=== PATIENT | male | born 1950 | race Asian ===

== ENCOUNTER 2017-09-05 05:30 | Inpatient (IN) | payer OTHER, MEDICARE ==
[2017-09-04 15:23] LABS: BASOPHILS % (AUTO) 0.7 % (0.0-5.0); EOSINOPHILS % (AUTO) 4.7 % (0.0-8.0); HEMATOCRIT 40.9 % (42-54); LYMPHOCYTES % (AUTO) 20.3 % (21.0-51.0); MEAN CORPUSCULAR HGB CONC 33.4 g/dL (32.0-36.0); MEAN CORPUSCULAR VOLUME 86.9 fL (79-99); MONOCYTES % (AUTO) 5.8 % (3.0-13.0); NEUTROPHILS % (AUTO) 68.5 % (40.0-77.0); PLATELET COUNT (AUTO) 217 K/uL (130-400); RED CELL DISTRIBUTION WIDTH 14.1 % (11.0-15.5); WHITE BLOOD COUNT (AUTO) 8.2 K/uL (4.8-10.8)
[2017-09-04 15:32] VITALS: BP 114/64
[2017-09-04 15:34] LABS: INR 0.95 (0.85-1.15); PARTIAL THROMBOPLASTIN TIME 25.4 SEC (26.3-35.5)
[2017-09-04 15:37] LABS: ALBUMIN 4.2 g/dL (3.5-5.0); BILIRUBIN,TOTAL 0.3 mg/dL (0.2-1.0); CREATININE 1.4 mg/dL (0.5-1.5); HEMOGLOBIN A1C 6.6 % (4.0-6.0); POTASSIUM 4.2 mmol/L (3.5-5.1); TOTAL PROTEIN, SERUM 8.8 g/dL (6.0-8.3)
[2017-09-05] VITALS (15 sets, daily range): BP systolic 103–152; BP diastolic 62–86
[~2017-09-05] VITALS: Ht 160 cm; Wt 85.5 kg
[~2017-09-05 05:30] MED LIST: ASPI-1197 PO; CAND32TA9 PO; CARV10CR PO; DOXA8TAB81 PO; FURO-152 PO; METF500T6 PO; PANT40TA PO; PROB500T26 PO; SIMV40TA5 PO
[2017-09-05] MEDS: CEFUROXIME SODIUM 1.5 GM VIAL IVP SCH ×2 (06:00→10:30)
[2017-09-05] MEDS ORDERED: SODIUM CHLORIDE 0.9% 1000ML 1,000 ML IV ONE (07:26)
[2017-09-05] MEDS ORDERED: NITROGLYCERIN 50 MG/D5% WATER 1 BOT ONE (07:36)
[2017-09-05] MEDS ORDERED: ROCURONIUM BROMIDE 10MG/1ML 5ML VL ONE (08:46)
[2017-09-05] MEDS ORDERED: OCTYL 2-CYANOACRYLATE 1 EACH TP ONE (08:59)
[2017-09-05] MEDS ORDERED: PAPAVERINE HCL 30 MG/ML 2ML VIAL ONE (08:59)
[2017-09-05] MEDS ORDERED: BACITRACIN 50,000 UNIT VIAL ONE (08:59)
[2017-09-05] MEDS ORDERED: THROMBIN-JMI 5000 UNIT/VIAL TP ONE (09:03)
[2017-09-05] MEDS ORDERED: HEPARIN SODIUM 1000UNIT/ML 10ML VIAL ONE ×2 (09:04→10:18)
[2017-09-05] MEDS ORDERED: NOREPINEPHRINE BITARTRATE 1 MG/1 ML ML IV ONE (10:18)
[2017-09-05] MEDS ORDERED: GLYCOPYRROLATE 0.2 MG/ML 5 ML VIAL ONE (10:18)
[2017-09-05] MEDS ORDERED: MILRINONE-D5W 20 MG/100 ML 0 ML IV ONE (10:18)
[2017-09-05] MEDS ORDERED: AMINOCAPROIC ACID 250 MG/ML 20 ML VIAL IV ONE (10:18)
[2017-09-05] MEDS ORDERED: PROTAMINE SULFATE 10 MG/ML 25ML VIAL IV ONE (10:18)
[2017-09-05] MEDS ORDERED: EPINEPHRINE 1 MG/ML AMPULE ONE (10:18)
[2017-09-05] MEDS ORDERED: PROPOFOL 10 MG/ML 20ML VIAL IV ONE (10:18)
[2017-09-05] MEDS ORDERED: LIDOCAINE PF 2% 5ML ABBOJECT ONE (10:18)
[2017-09-05] MEDS ORDERED: ESMOLOL HCL 10 MG/ML 10 ML VIAL ONE (10:18)
[2017-09-05] MEDS ORDERED: MIDAZOLAM HCL 1 MG/ML 5ML VIAL ONE (10:18)
[2017-09-05] MEDS ORDERED: NEOSTIGMINE 5MG/5ML SYR IV ONE (10:18)
[2017-09-05 10:43] LABS: ABG OXYGEN SATURATION 98.5 % (95.0-99.0)
[2017-09-05] MEDS ORDERED: FENTANYL CITRATE PF 50 MCG/1 ML 5ML AMP IV ONE ×3 (11:08)
[2017-09-05] MEDS ORDERED: SODIUM BICARB 50MEQ 50ML VIAL ONE ×2 (11:27→16:30)
[2017-09-05 12:04] LABS: ABG BASE EXCESS -1.7 mmol/L (-2.0-3.0); ABG HCO3 22.9 mmol/L (21.0-28.0); ABG OXYGEN SATURATION 98.9 % (95.0-99.0); ABG PCO2 38 mmHg (35-48)
[2017-09-05 12:46] LABS: ABG BASE EXCESS -2.8 mmol/L (-2.0-3.0); ABG PCO2 34 mmHg (35-48)
[2017-09-05 13:19] LABS: ABG BASE EXCESS -0.1 mmol/L (-2.0-3.0); ABG HCO3 24.3 mmol/L (21.0-28.0); ABG OXYGEN SATURATION 98.6 % (95.0-99.0); ABG PCO2 39 mmHg (35-48)
[2017-09-05 14:29] LABS: ABG BASE EXCESS -4.5 mmol/L (-2.0-3.0); ABG HCO3 20.2 mmol/L (21.0-28.0); ABG PCO2 36 mmHg (35-48)
[2017-09-05] MEDS ORDERED: INSULIN REGULAR, HUMAN 3ML 100 UNIT in SODIUM CHLORIDE 0.9% 99 ML IV PRN ×2 (14:30)
[2017-09-05] MEDS ORDERED: SODIUM CHLORIDE 0.9% 500ML 500 ML IV SCH (14:49)
[2017-09-05] MEDS ORDERED: ALBUMIN (HUMAN) 5% 250 ML IV PRN (15:00)
[2017-09-05] MEDS ORDERED: DEXTROSE 50%-WATER 50 ML DISP.SYRIN IV PRN (15:00)
[2017-09-05] MEDS ORDERED: INSULIN REGULAR, HUMAN 3ML 100 UNIT in SODIUM CHLORIDE 0.9% 99 ML IV SCH ×2 (15:00)
[2017-09-05] MEDS ORDERED: ACETAMINOPHEN 325 MG TAB PO PRN (15:00)
[2017-09-05] MEDS ORDERED: PROPOFOL 1000 MG/100 ML 100 ML IV PRN (15:00)
[2017-09-05] MEDS ORDERED: GLUCAGON 1MG KIT 1 MG ML IM PRN (15:00)
[2017-09-05] MEDS ORDERED: ONDANSETRON HCL MDV 20ML 2 MG/ML VIAL IV PRN (15:00)
[2017-09-05] MEDS ORDERED: AMINOCAPROIC ACID 15,000 MG in SODIUM CHLORIDE 0.9% 250 ML IV SCH (15:00)
[2017-09-05] MEDS ORDERED: MAGNESIUM 2GM PREMIX 50ML 50 ML IV PRN (15:00)
[2017-09-05] MEDS ORDERED: SODIUM CHLORIDE 0.9% 250 ML IV PRN (15:00)
[2017-09-05] MEDS ORDERED: POTASSIUM CHLORIDE 20MEQ/100ML 100 ML IV PRN (15:00)
[2017-09-05] MEDS ORDERED: SODIUM BICARB 8.4% 50ML SYRINGE IV PRN (15:00)
[2017-09-05] MEDS ORDERED: CALCIUM GLUCONATE 1 GM in SODIUM CHLORIDE 0.9% 50 ML IV PRN (15:00)
[2017-09-05] MEDS ORDERED: NOREPINEPHRINE 4MG/NS 250ML 250 ML IV PRN (15:00)
[2017-09-05] MEDS ORDERED: SODIUM CHLORIDE 0.9% 10 ML VIAL IVP PRN (15:00)
[2017-09-05] MEDS ORDERED: POTASSIUM PHOS 15 mMOL+NS250ML 250 ML IV PRN (15:00)
[2017-09-05] MEDS ORDERED: NICARDIPINE HCL 100 MG in SODIUM CHLORIDE 0.9% 100 ML IV PRN (15:00)
[2017-09-05] MEDS ORDERED: ACETAMINOPHEN 650 MG SUPPOSITORY RC PRN (15:00)
[2017-09-05] MEDS ORDERED: NITROGLYCERIN 50 MG/D5% WATER 250 BOT IV SCH (15:00)
[2017-09-05] MEDS ORDERED: MORPHINE SULFATE 4 MG/1ML SYG IV PRN ×2 (15:00)
[2017-09-05] MEDS ORDERED: EPINEPHRINE 2 MG in SODIUM CHLORIDE 0.9% 250 ML IV PRN (15:00)
[2017-09-05] MEDS ORDERED: SODIUM CHLORIDE 0.9% 1000ML 1,000 ML IV SCH (15:00)
[2017-09-05 15:11] LABS: HEMATOCRIT 35.2 % (42-54); MEAN CORPUSCULAR HEMOGLOBIN 28.6 pg (27.0-33.0); MEAN CORPUSCULAR HGB CONC 33.2 g/dL (32.0-36.0); MEAN CORPUSCULAR VOLUME 86.1 fL (79-99); PLATELET COUNT (AUTO) 136 K/uL (130-400); RED BLOOD CELL COUNT(AUTO) 4.09 MIL/uL (4.50-6.20); RED CELL DISTRIBUTION WIDTH 13.8 % (11.0-15.5); WHITE BLOOD COUNT (AUTO) 19.9 K/uL (4.8-10.8)
[2017-09-05 15:24] LABS: CREATININE 1.5 mg/dL (0.5-1.5); MAGNESIUM 1.4 mg/dL (1.80-2.40); PHOSPHORUS 4.1 mg/dL (2.5-4.9); POTASSIUM 3.9 mmol/L (3.5-5.1)
[2017-09-05 16:23] LABS: ABG HCO3 17.2 mmol/L (21.0-28.0); ABG OXYGEN SATURATION 97.5 % (95.0-99.0); ABG PCO2 35 mmHg (35-48)
[2017-09-05 17:49] LABS: ABG BASE EXCESS -4.8 mmol/L (-2.0-3.0); ABG OXYGEN SATURATION 98.1 % (95.0-99.0); ABG PCO2 37 mmHg (35-48)
[2017-09-05] MEDS ORDERED: EPINEPHRINE 8 MG in SODIUM CHLORIDE 0.9% 250 ML IV PRN (20:00)
[2017-09-05 20:18] LABS: ABG BASE EXCESS -1.6 mmol/L (-2.0-3.0); ABG HCO3 23.1 mmol/L (21.0-28.0); ABG OXYGEN SATURATION 97.7 % (95.0-99.0); ABG PCO2 39 mmHg (35-48)
[2017-09-05] MEDS: TRAMADOL HCL 50 MG TABLET PO PRN ×2 (21:48→22:53)
[2017-09-05] MEDS ORDERED: CEFUROXIME 1.5GM+NS 100ML 100 ML IV SCH (23:00)
[2017-09-05 23:11] LABS: MAGNESIUM 1.5 mg/dL (1.80-2.40); PHOSPHORUS 3.1 mg/dL (2.5-4.9)
[2017-09-06] VITALS (24 sets, daily range): BP systolic 78–133; BP diastolic 43–68
[2017-09-06] MEDS: CEFUROXIME SODIUM 1.5 GM VIAL IVP SCH ×3 (00:51→23:35)
[2017-09-06 04:19] LABS: HEMATOCRIT 29.2 % (42-54); MEAN CORPUSCULAR HEMOGLOBIN 30.1 pg (27.0-33.0); MEAN CORPUSCULAR HGB CONC 34.9 g/dL (32.0-36.0); MEAN CORPUSCULAR VOLUME 86.3 fL (79-99); PLATELET COUNT (AUTO) 127 K/uL (130-400); RED BLOOD CELL COUNT(AUTO) 3.39 MIL/uL (4.50-6.20); RED CELL DISTRIBUTION WIDTH 13.8 % (11.0-15.5); WHITE BLOOD COUNT (AUTO) 14.5 K/uL (4.8-10.8)
[2017-09-06 04:32] LABS: CREATININE 1.4 mg/dL (0.5-1.5); MAGNESIUM 2.3 mg/dL (1.80-2.40); PHOSPHORUS 3.7 mg/dL (2.5-4.9); POTASSIUM 4.1 mmol/L (3.5-5.1)
[2017-09-06 05:12] LABS: ABG BASE EXCESS 0.5 mmol/L (-2.0-3.0); ABG HCO3 25.6 mmol/L (21.0-28.0); ABG OXYGEN SATURATION 95.9 % (95.0-99.0); ABG PCO2 43 mmHg (35-48)
[2017-09-06] MEDS ORDERED: CALCIUM GLUCONATE 1 GM/10 ML VIAL IV ONE ×2 (05:14→20:13)
[2017-09-06] MEDS: PROBENECID 500 MG PO SCH ×2 (09:00→21:01)
[2017-09-06] MEDS: METOPROLOL TARTRATE 25 MG TAB PO SCH ×3 (09:00→20:56)
[2017-09-06] MEDS: ATORVASTATIN CALCIUM 40 MG TABLET PO SCH (09:36)
[2017-09-06] MEDS: TRAMADOL HCL 50 MG TABLET PO PRN ×3 (09:36→20:55)
[2017-09-06] MEDS: PANTOPRAZOLE SODIUM 40 MG TABLET.DR PO SCH (09:36)
[2017-09-06] MEDS: ASPIRIN 81MG TAB.CHEW PO SCH (09:37)
[2017-09-06] MEDS ORDERED: ALBUMIN (HUMAN) 5% 250 ML IV ONE (20:11)
[2017-09-06] MEDS ORDERED: IPRATROPIUM/ALBUTEROL SULFATE 3 ML SOLUTION IH ONE (20:28)
[2017-09-06] MEDS: GUAIFENESIN 600 MG TABLET.ER PO SCH (20:57)
[2017-09-07] VITALS (25 sets, daily range): BP systolic 113–144; BP diastolic 50–87
[2017-09-07] MEDS: IPRATROPIUM/ALBUTEROL SULFATE 3 ML SOLUTION IH SCH ×4 (00:53→19:44)
[2017-09-07 04:00] LABS: HEMATOCRIT 25.6 % (42-54); MEAN CORPUSCULAR HEMOGLOBIN 28.9 pg (27.0-33.0); MEAN CORPUSCULAR HGB CONC 33.4 g/dL (32.0-36.0); MEAN CORPUSCULAR VOLUME 86.5 fL (79-99); PLATELET COUNT (AUTO) 86 K/uL (130-400); RED BLOOD CELL COUNT(AUTO) 2.96 MIL/uL (4.50-6.20); RED CELL DISTRIBUTION WIDTH 14.1 % (11.0-15.5); WHITE BLOOD COUNT (AUTO) 14.2 K/uL (4.8-10.8)
[2017-09-07 04:13] LABS: ALBUMIN 2.9 g/dL (3.5-5.0); BILIRUBIN,TOTAL 0.6 mg/dL (0.2-1.0); CREATININE 1.6 mg/dL (0.5-1.5); POTASSIUM 4.5 mmol/L (3.5-5.1); TOTAL PROTEIN, SERUM 6.4 g/dL (6.0-8.3)
[2017-09-07] MEDS: INSULIN HUMULIN R 100 UNIT/ML 3ML SQ SCH ×4 (07:30→19:58)
[2017-09-07] MEDS: POLYETHYLENE GLYCOL 3350 17 GM POWD.PACK PO SCH (08:29)
[2017-09-07] MEDS: ASPIRIN 81MG TAB.CHEW PO SCH (08:29)
[2017-09-07] MEDS: PANTOPRAZOLE SODIUM 40 MG TABLET.DR PO SCH (08:29)
[2017-09-07] MEDS: GUAIFENESIN 600 MG TABLET.ER PO SCH ×2 (08:29→19:57)
[2017-09-07] MEDS: ATORVASTATIN CALCIUM 40 MG TABLET PO SCH (08:29)
[2017-09-07] MEDS: METOPROLOL TARTRATE 25 MG TAB PO SCH ×2 (08:29→19:57)
[2017-09-07] MEDS: PROBENECID 500 MG PO SCH ×2 (08:32→19:59)
[2017-09-07] MEDS: TRAMADOL HCL 50 MG TABLET PO PRN (20:33)
[2017-09-07] MEDS ORDERED: AMIODARONE HCL 50 MG/ML 3 ML VIAL ONE ×2 (21:38→21:49)
[2017-09-07] MEDS ORDERED: SODIUM CHLORIDE 0.9% 100 ML IV ONE (21:40)
[2017-09-07] MEDS ORDERED: AMIODARONE HCL 150 MG in DEXTROSE 5%-WATER 100 ML IV SCH (22:00)
[2017-09-07] MEDS ORDERED: AMIODARONE HCL 900 MG in DEXTROSE 5%-WATER 500 ML IV SCH (22:00)
[2017-09-08] VITALS (16 sets, daily range): BP systolic 107–152; BP diastolic 45–83
[2017-09-08] MEDS: IPRATROPIUM/ALBUTEROL SULFATE 3 ML SOLUTION IH SCH ×5 (00:27→23:53)
[2017-09-08] MEDS ORDERED: GUAIFENESIN-DM 200/20 MG 10 ML ONE (02:49)
[2017-09-08] MEDS: GUAIFENESIN-DM 200/20 MG 10 ML PO SCH (02:50)
[2017-09-08 03:55] LABS: HEMATOCRIT 25.8 % (42-54); MEAN CORPUSCULAR HEMOGLOBIN 29.6 pg (27.0-33.0); MEAN CORPUSCULAR HGB CONC 34.2 g/dL (32.0-36.0); MEAN CORPUSCULAR VOLUME 86.7 fL (79-99); PLATELET COUNT (AUTO) 115 K/uL (130-400); RED BLOOD CELL COUNT(AUTO) 2.98 MIL/uL (4.50-6.20); RED CELL DISTRIBUTION WIDTH 14.2 % (11.0-15.5); WHITE BLOOD COUNT (AUTO) 13.8 K/uL (4.8-10.8)
[2017-09-08 04:04] LABS: CREATININE 1.5 mg/dL (0.5-1.5); POTASSIUM 4.6 mmol/L (3.5-5.1)
[2017-09-08] MEDS: INSULIN HUMULIN R 100 UNIT/ML 3ML SQ SCH ×4 (05:23→21:00)
[2017-09-08] MEDS: PANTOPRAZOLE SODIUM 40 MG TABLET.DR PO SCH (08:27)
[2017-09-08] MEDS: METOPROLOL TARTRATE 25 MG TAB PO SCH ×2 (08:27→21:01)
[2017-09-08] MEDS: AMIODARONE HCL 200 MG TABLET PO SCH ×2 (08:27→21:00)
[2017-09-08] MEDS: PROBENECID 500 MG PO SCH ×2 (08:29→21:00)
[2017-09-08] MEDS: ASPIRIN 81MG TAB.CHEW PO SCH (08:29)
[2017-09-08] MEDS: GUAIFENESIN 600 MG TABLET.ER PO SCH ×2 (08:29→21:00)
[2017-09-08] MEDS: ATORVASTATIN CALCIUM 40 MG TABLET PO SCH (08:29)
[2017-09-08] MEDS: BENZOCAINE/MENTH/CETYLPYRD CL 1 EACH LOZENGE MM PRN ×2 (08:29→16:19)
[2017-09-08] MEDS: POLYETHYLENE GLYCOL 3350 17 GM POWD.PACK PO SCH (08:29)
[2017-09-08] MEDS: ENOXAPARIN SODIUM 30 MG/0.3 ML SQ SCH (12:48)
[2017-09-08] MEDS: FUROSEMIDE 20 MG TABLET PO SCH (16:20)
[2017-09-09] MEDS: GUAIFENESIN-DM 200/20 MG 10 ML PO SCH (02:13)
[2017-09-09 03:44] VITALS: BP 126/69
[2017-09-09 04:02] LABS: CREATININE 1.4 mg/dL (0.5-1.5); MAGNESIUM 2.3 mg/dL (1.80-2.40); POTASSIUM 4.6 mmol/L (3.5-5.1)
[2017-09-09] MEDS: INSULIN HUMULIN R 100 UNIT/ML 3ML SQ SCH ×3 (06:15→18:02)
[2017-09-09] MEDS: IPRATROPIUM/ALBUTEROL SULFATE 3 ML SOLUTION IH SCH ×2 (06:21→12:01)
[2017-09-09] MEDS ORDERED: METO25 PO (07:02)
[2017-09-09] MEDS ORDERED: FURO20TA6 PO (07:02)
[2017-09-09] MEDS ORDERED: AMIO200T44 PO (07:02)
[2017-09-09] MEDS ORDERED: ATOR40TA69 PO (07:02)
[2017-09-09 07:16] VITALS: BP 119/65
[2017-09-09] MEDS ORDERED: AMIODARONE HCL 200 MG TABLET PO SCH (09:00)
[2017-09-09] MEDS: PROBENECID 500 MG PO SCH (09:00)
[2017-09-09] MEDS ORDERED: TRAM50TA2 PO (09:10)
[2017-09-09] MEDS: POLYETHYLENE GLYCOL 3350 17 GM POWD.PACK PO SCH (09:46)
[2017-09-09] MEDS: PANTOPRAZOLE SODIUM 40 MG TABLET.DR PO SCH (09:46)
[2017-09-09] MEDS: ASPIRIN 81MG TAB.CHEW PO SCH (09:46)
[2017-09-09] MEDS: GUAIFENESIN 600 MG TABLET.ER PO SCH (09:46)
[2017-09-09] MEDS: ATORVASTATIN CALCIUM 40 MG TABLET PO SCH (09:46)
[2017-09-09] MEDS: METOPROLOL TARTRATE 25 MG TAB PO SCH (09:47)
[2017-09-09] MEDS: FUROSEMIDE 20 MG TABLET PO SCH ×2 (09:47→17:59)
[2017-09-09] MEDS: ENOXAPARIN SODIUM 30 MG/0.3 ML SQ SCH (09:48)
[2017-09-09 11:27] VITALS: BP 108/54
[2017-09-09] MEDS: BENZOCAINE/MENTH/CETYLPYRD CL 1 EACH LOZENGE MM PRN (13:12)
[2017-09-09 15:52] VITALS: BP 113/60
== END 2017-09-09 19:20 | disposition home health service (06) | DRG 236 ==
LOC: DAHIP 05:30 → 2CV 12:04 → 2BH 09-06 05:27 → 2AH 09-08 16:33
PROVIDERS: ADMIT Internal Medicine; ATTEND Internal Medicine
PROC: 02100Z9 Bypass Coronary Artery, One Artery from Left Internal Mammary, Open Approach (ICD-10-PCS; principal; 2017-09-05 10:16)
PROC: 021109W Bypass Coronary Artery, Two Arteries from Aorta with Autologous Venous Tissue, Open Approach (ICD-10-PCS; 2017-09-05 10:16)
PROC: 06BQ4ZZ Excision of Left Saphenous Vein, Percutaneous Endoscopic Approach (ICD-10-PCS; 2017-09-05 10:16)
DX: I25.10 Atherosclerotic heart disease of native coronary artery without angina pectoris (principal); I11.0 Hypertensive heart disease with heart failure; I50.9 Heart failure, unspecified; I48.91 Unspecified atrial fibrillation; D62 Acute posthemorrhagic anemia; E11.9 Type 2 diabetes mellitus without complications; E78.5 Hyperlipidemia, unspecified; K21.9 Gastro-esophageal reflux disease without esophagitis; M10.9 Gout, unspecified; Z82.49 Family history of ischemic heart disease and other diseases of the circulatory system
CPT/HCPCS: 36415; 71045; 71046; 80048; 80053; 80061; 82330; 82435; 82803; 82947; 82948; 83036; 83605; 83735; 84100; 84132; 84295; 85018; 85025; 85027; 85347; 85610; 85730; 86850; 86900; 86901; 86922; 93005; 93880; 94002; 94010; 94150; 94640; 94664; 97039; A4218; A7048; J0171; J0282; J0610; J0697; J1644; J1650; J1815; J2001; J2250; J2260; J2440; J2704; J2710; J2720; J3010; J3475; J3480; J3490; J7030; J7040; J7060; P9045

== ENCOUNTER 2017-09-29 10:26 | Inpatient (IN) | payer OTHER, MEDICARE ==
[2017-09-29] VITALS (22 sets, daily range): BP systolic 112–164; BP diastolic 57–97
[~2017-09-29] VITALS: Ht 160 cm; Wt 79.9 kg
[~2017-09-29 10:26] MED LIST changes: +AMIO200T44 PO; +ATOR40TA69 PO; -CAND32TA9 PO; -CARV10CR PO; -FURO-152 PO; +FURO20TA6 PO; +METO25 PO; -SIMV40TA5 PO; +TRAM50TA2 PO
[2017-09-29 11:07] LABS: BASOPHILS % (AUTO) 1.1 % (0.0-5.0); EOSINOPHILS % (AUTO) 6.6 % (0.0-8.0); HEMATOCRIT 28.7 % (42-54); MEAN CORPUSCULAR HEMOGLOBIN 29.6 pg (27.0-33.0); MEAN CORPUSCULAR HGB CONC 34.1 g/dL (32.0-36.0); MONOCYTES % (AUTO) 7.1 % (3.0-13.0); NEUTROPHILS % (AUTO) 63.2 % (40.0-77.0); PLATELET COUNT (AUTO) 282 K/uL (130-400); RED CELL DISTRIBUTION WIDTH 15.5 % (11.0-15.5); WHITE BLOOD COUNT (AUTO) 5.9 K/uL (4.8-10.8)
[2017-09-29] MEDS ORDERED: METF500T6 PO (11:12)
[2017-09-29] MEDS ORDERED: mometasone furoate (11:12)
[2017-09-29] MEDS ORDERED: DOXA8TAB81 PO (11:12)
[2017-09-29] MEDS ORDERED: ATOR40TA69 PO (11:12)
[2017-09-29] MEDS ORDERED: CLOP75TA14 PO (11:12)
[2017-09-29 11:23] LABS: ALBUMIN 3.4 g/dL (3.5-5.0); BILIRUBIN,TOTAL 0.4 mg/dL (0.2-1.0); CREATININE 1.5 mg/dL (0.5-1.5); POTASSIUM 4.8 mmol/L (3.5-5.1); TOTAL PROTEIN, SERUM 8.2 g/dL (6.0-8.3)
[2017-09-29 11:25] LABS: PROTHROMBIN TIME 10.5 SEC (9.6-11.6)
[2017-09-29] MEDS ORDERED: SODIUM CHLORIDE 0.9% 1000ML 1,000 ML IV ONE (11:57)
[2017-09-29] MEDS ORDERED: CEFUROXIME SODIUM 1.5 GM VIAL ONE (12:03)
[2017-09-29 12:16] LABS: HEMOGLOBIN A1C 6.9 % (4.0-6.0)
[2017-09-29] MEDS: CEFUROXIME SODIUM 750 MG/VIAL IVP SCH ×2 (12:45→14:30)
[2017-09-29] MEDS ORDERED: OCTYL 2-CYANOACRYLATE 1 EACH TP ONE (13:39)
[2017-09-29] MEDS ORDERED: LIDOCAINE HCL 1% 20 ML VIAL ONE (13:39)
[2017-09-29] MEDS ORDERED: BACITRACIN 50,000 UNIT VIAL ONE (13:40)
[2017-09-29] MEDS ORDERED: THROMBIN-JMI 5000 UNIT/VIAL TP ONE ×2 (13:40→14:35)
[2017-09-29] MEDS ORDERED: SODIUM CHLORIDE 0.9% 10 ML VIAL ONE (13:45)
[2017-09-29] MEDS ORDERED: DEXAMETHASONE SOD PHOSPHATE 10MG/ML 1ML VIAL ONE (14:14)
[2017-09-29] MEDS ORDERED: GLYCOPYRROLATE 0.2 MG/ML 5 ML VIAL ONE (14:14)
[2017-09-29] MEDS ORDERED: ONDANSETRON HCL 4 MG/2 ML VIAL ONE (14:14)
[2017-09-29] MEDS ORDERED: NEOSTIGMINE 5MG/5ML SYR IV ONE (14:14)
[2017-09-29] MEDS ORDERED: LIDOCAINE PF 2% 5ML ABBOJECT ONE (14:14)
[2017-09-29] MEDS ORDERED: PROPOFOL 10 MG/ML 20ML VIAL IV ONE (14:15)
[2017-09-29] MEDS ORDERED: FENTANYL CITRATE PF 50 MCG/1 ML 2ML VIAL ONE (14:15)
[2017-09-29] MEDS ORDERED: MIDAZOLAM HCL 1 MG/ML 2ML VIAL ONE (14:15)
[2017-09-29] MEDS ORDERED: ROCURONIUM BROMIDE 10MG/1ML 5ML VL ONE (14:16)
[2017-09-29] MEDS ORDERED: FENTANYL CITRATE PF 50 MCG/1 ML 5ML AMP IV ONE (14:35)
[2017-09-29] MEDS ORDERED: TRAMADOL HCL 50 MG TABLET PO PRN ×2 (17:00)
[2017-09-29] MEDS ORDERED: ACETAMINOPHEN 325 MG TAB PO PRN ×2 (17:00)
[2017-09-29] MEDS ORDERED: ONDANSETRON HCL 4 MG/2 ML VIAL IVP PRN (17:00)
[2017-09-29] MEDS ORDERED: PROTAMINE SULFATE 10 MG/ML 5 ML VIAL ONE (17:19)
[2017-09-29] MEDS ORDERED: PROTAMINE SULFATE 10 MG/ML 5 ML VIAL IVP SCH (17:30)
[2017-09-29] MEDS ORDERED: HYDRALAZINE HCL 20 MG/ML VIAL ONE (17:48)
[2017-09-29] MEDS ORDERED: BENZONATATE 100 MG CAPSULE PO ONE (19:41)
[2017-09-29] MEDS ORDERED: HYDRALAZINE HCL 20 MG/ML VIAL IV PRN (19:45)
[2017-09-29] MEDS ORDERED: BENZONATATE 100 MG CAPSULE PO PRN (19:45)
[2017-09-29] MEDS ORDERED: HYDRALAZINE HCL 20 MG/ML VIAL IV ONE (20:00)
[2017-09-29] MEDS: AMIODARONE HCL 200 MG TABLET PO SCH (20:59)
[2017-09-29] MEDS: ATORVASTATIN CALCIUM 40 MG TABLET PO SCH (20:59)
[2017-09-29] MEDS: METOPROLOL TARTRATE 25 MG TAB PO SCH (20:59)
[2017-09-30] VITALS (16 sets, daily range): BP systolic 102–132; BP diastolic 46–98
[2017-09-30] MEDS ORDERED: CEFUROXIME 1.5GM+NS 100ML 100 ML IV SCH (02:00)
[2017-09-30] MEDS: CEFUROXIME SODIUM 1.5 GM VIAL IVP SCH ×2 (03:29→14:07)
[2017-09-30 03:47] LABS: HEMATOCRIT 27.2 % (42-54); MEAN CORPUSCULAR HGB CONC 33.4 g/dL (32.0-36.0); MEAN CORPUSCULAR VOLUME 86.9 fL (79-99); PLATELET COUNT (AUTO) 194 K/uL (130-400); RED BLOOD CELL COUNT(AUTO) 3.13 MIL/uL (4.50-6.20); RED CELL DISTRIBUTION WIDTH 15.4 % (11.0-15.5); WHITE BLOOD COUNT (AUTO) 7.3 K/uL (4.8-10.8)
[2017-09-30 04:04] LABS: CREATININE 1.5 mg/dL (0.5-1.5); POTASSIUM 5.2 mmol/L (3.5-5.1)
[2017-09-30] MEDS ORDERED: CLOPIDOGREL BISULFATE 75 MG TAB PO SCH (09:00)
[2017-09-30] MEDS: METOPROLOL TARTRATE 25 MG TAB PO SCH ×2 (09:00→21:23)
[2017-09-30] MEDS: ASPIRIN 81MG TAB.CHEW PO SCH (09:00)
[2017-09-30] MEDS: FLUTICASONE PROPIONATE 50MCG/SPRAY 16 GM BOTTLE NS SCH ×2 (09:00→21:00)
[2017-09-30] MEDS: AMIODARONE HCL 200 MG TABLET PO SCH ×2 (09:00→21:22)
[2017-09-30] MEDS: DOXAZOSIN MESYLATE 2 MG TABLET PO SCH (09:00)
[2017-09-30] MEDS: METFORMIN HCL 500 MG TABLET PO SCH (09:00)
[2017-09-30] MEDS: PANTOPRAZOLE SODIUM 40 MG TABLET.DR PO SCH (09:00)
[2017-09-30] MEDS ORDERED: CLOP75TA14 PO (16:45)
[2017-09-30] MEDS: ATORVASTATIN CALCIUM 40 MG TABLET PO SCH (21:22)
[2017-10-01 03:57] VITALS: BP 124/72
[2017-10-01 07:00] VITALS: BP 120/62
[2017-10-01] MEDS: DOXAZOSIN MESYLATE 2 MG TABLET PO SCH (09:00)
[2017-10-01] MEDS: AMIODARONE HCL 200 MG TABLET PO SCH (09:15)
[2017-10-01] MEDS: ASPIRIN 81MG TAB.CHEW PO SCH (09:15)
[2017-10-01] MEDS: PANTOPRAZOLE SODIUM 40 MG TABLET.DR PO SCH (09:15)
[2017-10-01] MEDS: METFORMIN HCL 500 MG TABLET PO SCH (09:15)
[2017-10-01] MEDS: METOPROLOL TARTRATE 25 MG TAB PO SCH (09:15)
[2017-10-01] MEDS: FLUTICASONE PROPIONATE 50MCG/SPRAY 16 GM BOTTLE NS SCH (09:16)
== END 2017-10-01 11:00 | disposition home or self-care (01) | DRG 39 ==
LOC: DAHIP 10:31 → EDSTATUS 14:30 → 2CH 16:47 → 2BH 09-30 09:44
PROVIDERS: ADMIT Thoracic Surgery (Cardiothoracic Vascular Surgery); ATTEND Thoracic Surgery (Cardiothoracic Vascular Surgery)
PROC: 03CK0ZZ Extirpation of Matter from Right Internal Carotid Artery, Open Approach (ICD-10-PCS; principal; 2017-09-29 14:11)
DX: I65.21 Occlusion and stenosis of right carotid artery (principal); E11.9 Type 2 diabetes mellitus without complications; I25.10 Atherosclerotic heart disease of native coronary artery without angina pectoris; E78.5 Hyperlipidemia, unspecified; Z95.1 Presence of aortocoronary bypass graft
CPT/HCPCS: 36415; 71046; 76536; 80048; 80053; 82948; 83036; 85025; 85027; 85610; 85730; 86850; 86900; 86901; 86922; 88304; 93005; A4218; J0360; J0697; J1100; J2001; J2250; J2405; J2704; J2710; J2720; J3010; J3490; J7030